=== PATIENT | male | born 2000 | race Native Hawaiian/Other Pacific Islander ===

== ENCOUNTER 2023-01-22 13:42 | Emergency (ER) | payer BC ==
[~2023-01-22] VITALS: Ht 185.4 cm; Wt 68.0 kg
[2023-01-22 14:33] LABS: PLATELET COUNT 192 K/uL (142-355)
[2023-01-22 14:48] LABS: POTASSIUM 4.5 mmol/L (3.6-5.2)
[2023-01-22 15:15] VITALS: BP 115/76; TEMP 98
== END 2023-01-22 15:20 | disposition home or self-care (01) ==
LOC: ED 13:42
PROVIDERS: Emergency Medicine
DX: K21.9 Gastro-esophageal reflux disease without esophagitis (principal); R07.89 Other chest pain
CPT/HCPCS: 36415; 80053; 82550; 84484; 85007; 85027; 85379; 93005; 96374; 99284; J3490